=== PATIENT | male | born 1955 | race Caucasian/White ===

== ENCOUNTER 2024-02-27 11:43 | Emergency (ER) | payer MEDICARE, MEDICAID, SELFPAY ==
[2024-02-27] VITALS (28 sets, daily range): BP systolic 100–115; BP diastolic 64–73; PULSE 72–89; RESP 13–32; TEMP 36.1; O2SAT 88–98; BMI 28.3
--- NOTE | 2024-02-27 11:38 | DI.RAD.S_ITS ---
PROCEDURE: XR CHEST 1V INDICATIONS: cough TECHNIQUE: One view of the chest was acquired. COMPARISON: None. FINDINGS: Surgical changes and devices: None. Lungs and pleura: Lungs are clear. No pleural effusions or pneumothorax. Mediastinum: Mediastinal contours appear normal. Heart size is normal. Bones and chest wall: No suspicious bony lesions. Overlying soft tissues appear unremarkable. IMPRESSION: No acute cardiopulmonary abnormality is seen. Dictated by: Titi Yu M.D. on 02/27/2024 at 12:27 Approved by: Titi Yu M.D. on 02/27/2024 at 12:30
--- NOTE | 2024-02-27 11:39 | ED_ITS ---
HPI - General Adult General Chief complaint: Shortness of Breath/Dyspnea Stated complaint: Dizziness Time Seen by Provider: 02/27/24 11:44 History of Present Illness HPI narrative: 68-year-old gentleman with known cardiomyopathy, ejection fraction at 15% known left bundle branch block, atrial fibrillation anticoagulated on apixaban, history of polysubstance use including methamphetamine and alcohol brought in by medics today after having a near syncopal episode. He states he was cooking breakfast in the kitchen this morning he became dizzy, acutely short of breath, diaphoretic. He sat down and noted that he did not feel better, 911 was called. On arrival they noted a blood pressure of 94/70, significant wheeze he was given a DuoNeb prior to arrival. Patient notes that his partner was diagnosed with rhino virus this week and he has had similar upper respiratory symptoms. Over the last 24 hours his cough has become progressively worse and now is slightly productive. He is noticed slight lower extremity edema. He has not on home oxygen. He is able to speak in full sentences. He has not currently complaining of palpitations, chest pain beyond that related to coughing, abdominal pain. Related Data Previous Rx's Medication Instructions Recorded amoxicillin 875 mg-potassium 1 tab PO BID #20 tabs 02/27/24 clavulanate 125 mg tablet doxycycline hyclate 100 mg capsule 100 mg PO BID #20 caps 02/27/24 furosemide 20 mg tablet 20 mg PO DAILY #30 tabs 02/27/24 Allergies Allergy/AdvReac Type Severity Reaction Status Date / Time No Known Drug Allergies Allergy Verified 02/27/24 11:48 Review of Systems Review of Systems Narrative: Pertinent positive and negative findings as per HPI Patient History Medical History Congestive heart failure Atrial fibrillation Cardiomyopathy Social History Smoking Status: Current every day smoker Exam Initial Vital Signs Initial Vital Signs: Vital Signs Temperature 97.0 F L 02/27/24 11:44 Pulse Rate 75 02/27/24 11:44 Respiratory Rate 16 02/27/24 11:44 Blood Pressure 100/65 02/27/24 11:44 Pulse Oximetry 92 02/27/24 11:44 Oxygen Delivery Method Room Air 02/27/24 11:44 General: Chronically ill-appearing with acute exacerbation. He is able to speak in full sentences, voice is somewhat hoarse, raspy cough HEENT: Moist mucous membranes, normal sclera with reactive pupils, Neck: No JVD, supple Respiratory: Lungs with wheeze in all lung rosales and rhonchi bilaterally worse in the right base, he has not using accessory muscles at this time Cardiac: Regular rate and rhythm overriding pulmonary noises make evaluation of murmurs difficult Abdomen: Soft, nontender, no rebound or guarding, no flank pain Skin: Slightly pale, he has not currently diaphoretic Neurologic: Globally weak but Grossly neurologically intact with no obvious asymmetries or abnormalities Extremities: No trauma, well perfused, 1+ bilateral lower extremity edema Psych: Cooperative, appropriate insight and affect Course Orders Ordered: ED Orders 02/27/24 11:38 XR chest 1V Stat EKG-12 Lead Stat 02/27/24 11:40 Complete Blood Count AUTO DIFF Stat Comprehensive Metabolic Panel Stat D Dimer Stat Lactate (Lactic Acid) Stat Magnesium Stat NT-proBNP (BNP-Adult 18+) Stat Procalcitonin Stat Troponin I Stat 02/27/24 11:50 Blood Culture Stat 02/27/24 14:00 CT angio chest PE protocol Stat 02/27/24 14:15 Trop I [Troponin I] Stat 02/27/24 15:25 Urinalysis and Microscopic Stat Discontinued Medications Albuterol/Ipratropium (Albuterol/Ipratropium 3 Ml Ampul) 3 ml INH NOW ONE Stop: 02/27/24 11:38 Last Admin: 02/27/24 12:00 Dose: 3 ml Documented By: FRANKY Furosemide (Furosemide 40 Mg/4 Ml Vial) 40 mg IV NOW ONE Stop: 02/27/24 14:01 Last Admin: 02/27/24 14:18 Dose: 40 mg Documented By: GUNJAN Ceftriaxone Sodium 2,000 mg/ (Sodium Chloride) 100 mls @ 200 mls/hr IV NOW ONE Stop: 02/27/24 11:49 Last Infusion: 02/27/24 12:34 Dose: Infused Documented By: Admin: 02/27/24 11:54 Dose: 200 mls/hr Documented By: GUNJAN Azithromycin 500 mg/ Dextrose 250 mls @ 250 mls/hr IV NOW ONE Stop: 02/27/24 11:49 Last Infusion: 02/27/24 13:38 Dose: Infused Documented By: Admin: 02/27/24 12:33 Dose: 250 mls/hr Documented By: GUNJAN Vital Signs Vital signs: Vital Signs - 8 hr 02/27/24 11:44 02/27/24 11:48 02/27/24 11:50 Temperature 97.0 F L Pulse Rate 75 75 74 Respiratory Rate 16 13 13 Blood Pressure 100/65 Pulse Oximetry 92 92 96 Oxygen Delivery Method Room Air Oxygen Flow Rate 02/27/24 11:50 02/27/24 12:00 02/27/24 12:00 Temperature Pulse Rate 78 Respiratory Rate 20 Blood Pressure 101/65 100/68 Pulse Oximetry 94 Oxygen Delivery Method Room Air Oxygen Flow Rate 02/27/24 12:00 02/27/24 12:15 02/27/24 12:15 Temperature Pulse Rate 77 78 Respiratory Rate 24 16 Blood Pressure 105/64 Pulse Oximetry 90 L 88 L Oxygen Delivery Method Room Air Oxygen Flow Rate 02/27/24 12:16 02/27/24 12:30 02/27/24 12:30 Temperature Pulse Rate 80 Respiratory Rate 18 19 Blood Pressure 114/70 Pulse Oximetry 91 94 Oxygen Delivery Method Nasal Cannula Nasal Cannula Oxygen Flow Rate 2 2 02/27/24 12:45 02/27/24 12:45 02/27/24 13:00 Temperature Pulse Rate 82 Respiratory Rate 21 Blood Pressure 115/73 109/71 Pulse Oximetry 95 Oxygen Delivery Method Oxygen Flow Rate 02/27/24 13:00 02/27/24 13:15 02/27/24 13:15 Temperature Pulse Rate 85 83 Respiratory Rate 24 22 Blood Pressure 110/71 Pulse Oximetry 96 97 Oxygen Delivery Method Nasal Cannula Oxygen Flow Rate 2 02/27/24 13:30 02/27/24 13:30 02/27/24 13:45 Temperature Pulse Rate 86 Respiratory Rate 24 Blood Pressure 103/66 106/68 Pulse Oximetry 98 Oxygen Delivery Method Oxygen Flow Rate 02/27/24 13:45 02/27/24 14:00 02/27/24 14:00 Temperature Pulse Rate 79 82 Respiratory Rate 23 15 Blood Pressure 110/71 Pulse Oximetry 95 96 Oxygen Delivery Method Nasal Cannula Oxygen Flow Rate 2 02/27/24 14:15 02/27/24 14:15 02/27/24 14:30 Temperature Pulse Rate 77 75 Respiratory Rate 20 14 Blood Pressure 105/71 Pulse Oximetry 93 92 Oxygen Delivery Method Oxygen Flow Rate 02/27/24 14:45 02/27/24 15:00 02/27/24 15:15 Temperature Pulse Rate 73 79 75 Respiratory Rate 18 32 H 19 Blood Pressure Pulse Oximetry 95 91 91 Oxygen Delivery Method Oxygen Flow Rate 02/27/24 15:30 02/27/24 15:45 02/27/24 16:00 Temperature Pulse Rate 73 76 72 Respiratory Rate 22 20 17 Blood Pressure Pulse Oximetry 91 92 91 Oxygen Delivery Method Room Air Room Air Oxygen Flow Rate Medical Decision Making Lab Data 02/27/24 11:40 02/27/24 11:40 Labs: Lab Results 02/27/24 02/27/24 02/27/24 Range/Units 11:40 14:15 15:25 WBC 12.2 H (4.5-11.0) X10^3/uL RBC 4.67 (4.5-5.9) X10^6/uL Hgb 13.4 L (13.5-17.5) g/dL Hct 41.5 (41-53) % MCV 88.9 (80-100) fL MCH 28.6 (26-34) PG MCHC 32.2 (30-36) % RDW 14.3 (11.6-14.8) % Plt Count 226 (150-400) X10^3/uL Neut % (Auto) 85.0 H (50-75) % Lymph % (Auto) 6.1 L (25-40) % Moore % (Auto) 7.8 (3-14) % Eos % (Auto) 0.6 L (2-4) % Baso % (Auto) 0.5 (0-2) % Neut # (Auto) 73780 H (9783-8477) /uL Lymph # (Auto) 700 L (5055-0381) /uL Moore # (Auto) 1000 H (0-900) /uL Eos # (Auto) 100 (0-450) /uL Baso # (Auto) 100 (0-100) /uL D-Dimer 839 H (<500) ng/ml Sodium 134 L (137-145) mmol/L Potassium 4.3 (3.4-5.1) mmol/L Chloride 101 (98-107) mmol/L Carbon Dioxide 26 (22-32) mmol/L BUN 26 H (9-20) mg/dL Creatinine 1.17 (0.66-1.25) mg/dL Estimated GFR > 60 (>60) mL/min BUN/Creatinine Ratio 22.2 H (6-22) Glucose 106 (80-110) mg/dL Lactate 1.4 (0.7-2.1) mmol/L Calcium 9.4 (8.4-10.2) mg/dL Magnesium 1.9 (1.6-2.3) mg/dL Total Bilirubin 0.8 (0.2-1.3) mg/dL AST 32 (17-59) IU/L ALT 30 (<50) IU/L Alkaline Phosphatase 189 H (38-126) U/L Troponin I 0.053 H 0.046 H (0.01-0.034) ng/mL NT-Pro-B Natriuret Pep 5810 H (<125) pg/mL Total Protein 7.1 (6.3-8.2) g/dL Albumin 3.7 (3.5-5.0) g/dL Globulin 3.4 (1.7-4.1) g/dL Albumin/Globulin Ratio 1.1 (1.0-2.8) Procalcitonin 0.238 (<0.5) ng/mL Urine Color Yellow Urine Appearance Clear Urine pH 6.0 (4.5-8.0) Ur Specific [place] 1.010 (1.000-1.035) Urine Protein Trace H (Negative) Urine Glucose (UA) Negative (Negative) g/dL Urine Ketones Negative (NEGATIVE) Urine Occult Blood Negative (Negative) Urine Nitrate Negative (Negative) Urine Bilirubin Negative (NEGATIVE) Urine Urobilinogen 0.2 (0.2) E.U./dL Ur Leukocyte Esterase Negative (NEGATIVE) Urine RBC None seen (0-5/HPF) Urine WBC None seen (0-5/HPF) Ur Squamous Epith Cells None seen (0-5/HPF) Urine Bacteria None seen (None) Ur Culture Indicated? Cult not indicated Vol Urine Centrifuged 10ml (spun) Imaging Data CT scan - chest: Radiologist's Impression: PROCEDURE: CT ANGIO CHEST PE PROTOCOL INDICATIONS: + d dimer TECHNIQUE: After the administration of intravenous contrast, 2 mm thick sections acquired from the pulmonary apices to the posterior costophrenic angles. 3-dimensional maximum intensity projection (MIP) coronal and sagittal reformats were then acquired through the thorax. For radiation dose reduction, the following was used: automated exposure control, adjustment of mA and/or kV according to patient size. COMPARISON: None. FINDINGS: Image quality: Diagnostic. Pulmonary arteries: Pulmonary arteries are normal in size, and demonstrate no intraluminal filling defects to suggest central pulmonary embolism. Lower Neck: No enlarged lymph nodes. Thyroid: No thyroid nodules which require sonographic follow up, per consensus guidelines. Axillae: No enlarged lymph nodes. Chest Wall: Unremarkable. Bones: Unremarkable. Lungs and Pleura: Dependent bronchial thickening with bronchiectasis, and debris within the dependent airways. There is lower lobe tree-in-bud nodules and early consolidation in the right lower lobe. Mild smooth interstitial thickening. Heart: Heart size is enlarged. No pericardial effusion. Thoracic Vessels: No aortic aneurysm. Mediastinum and Lydia: No enlarged lymph nodes. Esophagus: No wall thickening. No hiatal hernia. Upper Abdomen: Ill-defined hypoattenuating mass in the liver measuring 4.9 cm, located in segment 4. IMPRESSION: No pulmonary embolus. Dependent bronchiectasis and bronchial wall thickening with debris, lower lobe tree-in-bud nodules and early consolidation in the right lower lobe. Findings are concerning for early aspiration pneumonia. Differential includes bronchopneumonia. Correlate with risk factors for aspiration and consider speech pathology referral. Smooth interstitial thickening, likely mild pulmonary edema. Ill-defined 4.9 cm mass in segment 4 of the liver. Differential includes malignancy versus focal fat. Recommend outpatient MRI or CT for complete characterization (hepatic mass protocol). Dictated by: Titi Yu M.D. on 02/27/2024 at 15:03 MDM Narrative Medical decision making narrative: CC: Near-syncope Complicating co-morbidities: Presumed rhino virus, upper respiratory symptoms for the last week and his partner with similar symptoms is positive for rhino virus, cardiomyopathy with low ejection fraction, paroxysmal atrial fibrillation currently anticoagulated Patient does note that he had to get up and feed his chickens this morning, had no energy so did use some methamphetamine this morning Data collected from: patient Medical records reviewed: Medical records from [facility] are reviewed. I do not see a recent echocardiogram or cardiology consultation notes. Most recent primary care note was February of 2023 Differential considered: Sepsis, developing post viral bacterial pneumonia, COPD exacerbation, congestive heart failure, acute coronary syndrome Exam documented above, pertinent findings include: Patient appears acutely ill but not toxic. He is able to speak in full sentences. Pulmonary exam suggest developing likely bilateral lower lobe pneumonias right greater than left Lab Test results independently reviewed as above. Pertinent findings: CBC shows mild leukocytosis at 12.2 with 85% neutrophils D-dimer is elevated at 839 Chemistries show normal renal function, slightly elevated alkaline phosphatase BNP is elevated at 5 810 Troponin is slightly elevated likely related to heart failure Lactic acid is not elevated Independently reviewed EKG: Sinus rhythm at a rate of 75 with left bundle-branch block. He is not meeting Sgarbossa criteria to suspect acute STEMI/ASMITA Imaging studies independently reviewed: Chest x-ray read by radiology is unremarkable. In light of the increasing rhonchi in the right base I think the right base looks like a developing bacterial pneumonia CT scan of the chest shows no pulmonary emboli but does seem to confirm developing bacterial pneumonia in the right base. Incidental abnormality in the liver that will need additional follow up at some point Treatments: We will begin with DuoNeb. Difficult to tell how much of symptoms are infectious versus congestive heart failure versus both. We will hold on fluids for the time being but will start ceftriaxone and azithromycin after cultures and urine has been obtained for presumed community-acquired pneumonia following presumed rhino virus infection With the elevated D-dimer CT angiogram of the chest will be ordered. The congestive heart failure I am going to give him 40 mg of Lasix. We will repeat troponin. Currently oxygen requirements have increased from room air to 2 L nasal cannula Re-evaluations: Patient is a 94% on room air. He is put out almost a L of fluid. He is able to speak in full sentences, no signs of respiratory distress. We discussed disposition and he would like to try going home with antibiotics and Lasix which I believe is absolutely appropriate at this point Discussion: 68-year-old gentleman with methamphetamine use disorder, increasing weakness such that he felt he required some methamphetamine this morning increasing shortness of breath cough. He has had upper respiratory likely viral syndrome for the last week and now is developing a right lower lobe bacterial pneumonia. No signs of sepsis. There was no evidence of pulmonary embolism. He has known cardiomyopathy with a low ejection fraction. Improved with Lasix and BNP was slightly elevated. Would like to have him stay on Lasix until he is evaluated as an outpatient and passed this acute stage of bacterial pneumonia following his viral syndrome. We discussed the incidentally noted 5 cm ill- defined area in the liver that will need follow up once he is passed this acute illness. He understands follow up will be required. Currently he is not meeting criteria for admission, feels comfortable with discharge is able to pickling grader prescriptions and we will be safe for discharge Discharge Plan Departure Patient Disposition: Home Clinical Impression: Liver mass Community acquired pneumonia Qualifiers: Laterality: right Lung location: lower lobe of lung Qualified Code(s): J18.9 - Pneumonia, unspecified organism Acute CHF (congestive heart failure) Qualifiers: Heart failure type: unspecified Qualified Code(s): I50.9 - Heart failure, unspecified Instructions: DI for Heart Failure, DI for Pneumonia -- Adult Activity Restrictions/Additional Instructions: Thank you for coming in today I think that you were getting over your upper respiratory viral infection and now bacteria are beginning to grow in your right lung, this is a bacterial pneumonia. You were given antibiotics in the emergency department and you are not showing signs of sepsis. Your oxygen levels are at 94% on room air. You need to complete 10 additional days of antibiotics for community-acquired pneumonia, doxycycline and Augmentin. Please make sure you get both doses of these antibiotics in tomorrow It also looks like you have a small amount of heart failure and fluid accumulating. I am going to place you on 20 mg of Lasix daily until you see your primary care physician. I think that this will also help you feel that you are breathing easier We did a CT scan to make sure you did not have a blood clot in your lungs. You do not. Incidentally found on that CT scan was 5 cm area of abnormality in your liver that will need further evaluation as an outpatient once you are feeling better. Please discuss this with your primary care physician If you feel that you are getting worse, please feel free to return to the ER Prescriptions: New amoxicillin-pot clavulanate 875-125 mg tablet 1 tab PO BID Qty: 20 0RF doxycycline hyclate 100 mg capsule 100 mg PO BID Qty: 20 0RF furosemide 20 mg tablet 20 mg PO DAILY Qty: 30 0RF Stand Alone Forms: Patient Portal/API
--- NOTE | 2024-02-27 11:42 | EKG_ITS ---
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
[2024-02-27] MEDS: cefTRIAXone 2,000 MG in SODIUM CHLORIDE 0.9% 100 ML 200 MG IV (11:54)
[2024-02-27] MEDS: ALBUTEROL/IPRATROPIUM 3 ML AMPUL INH (12:00)
[2024-02-27 12:14] LABS: Add Manual Diff / Slide Review NO; Basophils Absolute Auto 100 /uL (0-100); Basophils Percent Auto 0.5 % (0-2); Eosinophils Absolute Auto 100 /uL (0-450); Eosinophils Percent Auto 0.6 % (2-4); Hematocrit 41.5 % (41-53); Hemoglobin 13.4 g/dL (13.5-17.5); Lymphocytes Absolute Auto 700 /uL (1100-4500); Lymphocytes Percent Auto 6.1 % (25-40); Mean Corpuscular HGB Conc 32.2 % (30-36); Mean Corpuscular Hemoglobin 28.6 PG (26-34); Mean Corpuscular Volume 88.9 fL (80-100); Monocytes Absolute Auto 1000 /uL (0-900); Monocytes Percent Auto 7.8 % (3-14); Neutrophils Absolute Auto 10400 /uL (1500-7000); Platelet Count 226 X10^3/uL (150-400); Red Blood Cell Count 4.67 X10^6/uL (4.5-5.9); Red Cell Distribution Width 14.3 % (11.6-14.8); White Blood Cell Count 12.2 X10^3/uL (4.5-11.0)
[2024-02-27 12:18] LABS: D Dimer 839 ng/ml (<500); Lactate (Lactic Acid) 1.4 mmol/L (0.7-2.1)
[2024-02-27 12:19] LABS: Alanine Aminotransferase 30 IU/L (<50); Albumin 3.7 g/dL (3.5-5.0); Albumin Globulin Ratio 1.1 (1.0-2.8); Alkaline Phosphatase 189 U/L (38-126); Aspartate Aminotransferase 32 IU/L (17-59); BUN Creatinine Ratio 22.2 (6-22); Bilirubin Total 0.8 mg/dL (0.2-1.3); Blood Urea Nitrogen 26 mg/dL (9-20); Calcium 9.4 mg/dL (8.4-10.2); Carbon Dioxide 26 mmol/L (22-32); Chloride 101 mmol/L (98-107); Estimated Glomerular Filt Rate > 60 mL/min (>60); Globulin 3.4 g/dL (1.7-4.1); Glucose 106 mg/dL (80-110); HEMOLYSIS 19 (0-50); Magnesium 1.9 mg/dL (1.6-2.3); Potassium 4.3 mmol/L (3.4-5.1); Sodium 134 mmol/L (137-145); Total Protein 7.1 g/dL (6.3-8.2)
[2024-02-27 12:31] LABS: NT-proBNP (BNP-Adult 18+) 5810 pg/mL (<125); Troponin I 0.053 ng/mL (0.01-0.034)
[2024-02-27] MEDS: AZITHROMYCIN 500 MG in DEXTROSE 5% IN WATER 250 ML 250 MG IV (12:33)
[2024-02-27 12:36] LABS: Procalcitonin 0.238 ng/mL (<0.5)
--- NOTE | 2024-02-27 14:00 | DI.CT.S_ITS ---
PROCEDURE: CT ANGIO CHEST PE PROTOCOL INDICATIONS: + d dimer TECHNIQUE: After the administration of intravenous contrast, 2 mm thick sections acquired from the pulmonary apices to the posterior costophrenic angles. 3-dimensional maximum intensity projection (MIP) coronal and sagittal reformats were then acquired through the thorax. For radiation dose reduction, the following was used: automated exposure control, adjustment of mA and/or kV according to patient size. COMPARISON: None. FINDINGS: Image quality: Diagnostic. Pulmonary arteries: Pulmonary arteries are normal in size, and demonstrate no intraluminal filling defects to suggest central pulmonary embolism. Lower Neck: No enlarged lymph nodes. Thyroid: No thyroid nodules which require sonographic follow up, per consensus guidelines. Axillae: No enlarged lymph nodes. Chest Wall: Unremarkable. Bones: Unremarkable. Lungs and Pleura: Dependent bronchial thickening with bronchiectasis, and debris within the dependent airways. There is lower lobe tree-in-bud nodules and early consolidation in the right lower lobe. Mild smooth interstitial thickening. Heart: Heart size is enlarged. No pericardial effusion. Thoracic Vessels: No aortic aneurysm. Mediastinum and Lydia: No enlarged lymph nodes. Esophagus: No wall thickening. No hiatal hernia. Upper Abdomen: Ill-defined hypoattenuating mass in the liver measuring 4.9 cm, located in segment 4. IMPRESSION: No pulmonary embolus. Dependent bronchiectasis and bronchial wall thickening with debris, lower lobe tree-in-bud nodules and early consolidation in the right lower lobe. Findings are concerning for early aspiration pneumonia. Differential includes bronchopneumonia. Correlate with risk factors for aspiration and consider speech pathology referral. Smooth interstitial thickening, likely mild pulmonary edema. Ill-defined 4.9 cm mass in segment 4 of the liver. Differential includes malignancy versus focal fat. Recommend outpatient MRI or CT for complete characterization (hepatic mass protocol). Dictated by: Titi Yu M.D. on 02/27/2024 at 15:03 Approved by: Titi Yu M.D. on 02/27/2024 at 15:07
[2024-02-27] MEDS: FUROSEMIDE 40 MG/4 ML VIAL IV (14:18)
[2024-02-27 14:43] LABS: Troponin I 0.046 ng/mL (0.01-0.034)
[2024-02-27 15:42] LABS: Appearance Urine UA CLEAR; Bilirubin Urine UA NEGATIVE (NEGATIVE); Color Urine UA YELLOW; Glucose Urine UA NEGATIVE (Negative); Ketones Urine UA NEGATIVE (NEGATIVE); Leukocyte Esterase Urine UA NEGATIVE (NEGATIVE); Nitrite Urine UA NEGATIVE (Negative); Occult Blood Urine UA NEGATIVE (Negative); Protein Urine UA TRACE (Negative); Urobilinogen Urine UA 0.2 E.U./dL (0.2)
[2024-02-27 15:58] LABS: Bacteria Urine None Seen; Culture Indicated Urine Cult Not Indicated; RBC Urine None Seen (0-5/HPF); Squamous Epithelial Cell Urine None Seen (0-5/HPF); Urine Volume 10mL (spun); WBC Urine None Seen (0-5/HPF)
--- NOTE | 2024-02-27 17:46 | PC.NURSE ---
pt reports that he feels better. stopped at one point to catch his breath. spo2 93-94 percent .
== END 2024-02-27 17:49 | disposition home or self-care (01) ==
PROVIDERS: Emergency Provider Emergency Medicine
DX: J18.9 Pneumonia, unspecified organism (principal); I50.9 Heart failure, unspecified; I44.7 Left bundle-branch block, unspecified; R16.0 Hepatomegaly, not elsewhere classified; R06.02 Shortness of breath; R79.89 Other specified abnormal findings of blood chemistry
CPT/HCPCS: 36415; 71045; 71275; 80053; 81001; 83605; 83735; 83880; 84145; 84484; 85025; 85379; 87040; 93005; 94640; 96365; 96367; 96375; 99285; J0696; J1940; Q9967